=== PATIENT | male | born 1950 | race Caucasian/White ===

== ENCOUNTER 2016-08-29 16:14 | Emergency (ER) | payer OTHER, BC ==
[2016-08-29] MEDS ORDERED: FENTANYL CITRATE 50 MCG/ML SOL ONE (16:17)
[2016-08-29] MEDS ORDERED: KETAMINE HYDROCHLORIDE 50 MG/ML SOL ONE (16:21)
[2016-08-29] MEDS ORDERED: FENTANYL CITRATE 50 MCG/ML SOL IV ONE (16:25)
[2016-08-29] MEDS ORDERED: KETAMINE HYDROCHLORIDE 50 MG/ML SOL IV ONE ×2 (16:25→16:40)
[2016-08-29] MEDS ORDERED: ROCURONIUM BROMIDE 10 MG/ML SOL IV ONE (16:25)
[2016-08-29 16:36] LABS: HEMATOCRIT 50 % (39-53); MEAN CORPUSCULAR HGB CONC 33.6 gm/dl (32.0-36.0); MEAN CORPUSCULAR VOLUME 85 fL (80-100)
[2016-08-29 16:37] LABS: CALCIUM 8.7 mg/dl (8.5-10.1); POTASSIUM 3.9 mMol/L (3.5-5.1)
[2016-08-29 16:46] LABS: BASOPHILS % (MANUAL) 0 % (0-3); EOSINOPHILS % (MANUAL) 1 % (0-9); LYMPHOCYTES % (MANUAL) 31 % (10-50); NORMAL RBCS PRESENT
[2016-08-29 17:00] LABS: APPEARANCE,URINE Slightly Cloudy; BILIRUBIN,URINE NEGATIVE (NEGATIVE); COLOR,URINE Yellow; GLUCOSE, URINE (UA) 2+ (NEGATIVE); KETONES,URINE NEGATIVE (NEGATIVE); LEUKOCYTE ESTERASE ,URINE NEGATIVE (NEGATIVE); NITRATE,URINE NEGATIVE (NEGATIVE); OCCULT BLOOD,URINE 2+ (NEG-TRACE); PH,URINE 5.5; UROBILINOGEN,URINE 0.2 (0.2-1.0 EU)
[2016-08-29 17:05] LABS: WBC,URINE 0-3 (0-5AV/HPF)
[2016-08-29 17:34] VITALS: RESP 24
[2016-08-29 17:49] VITALS: BP 112/44; O2SAT 100
[2016-08-29 17:50] VITALS: PULSE 108
== END 2016-08-29 16:55 | disposition short-term general hospital (02) | DRG 556 ==
LOC: ED 16:14
DX: M25.512 Pain in left shoulder (principal); R51 Headache; R40.2412 Glasgow coma scale score 13-15, at arrival to emergency department; S01.81XA Laceration without foreign body of other part of head, initial encounter; V49.49XA Driver injured in collision with other motor vehicles in traffic accident, initial encounter
CPT/HCPCS: 80048; 81001; 85007; 85027; 85610; 85730; 96374; 96375; 99283; 99291; J3010

== ENCOUNTER 2018-04-10 10:03 | Emergency (ER) | payer MEDICARE, BC ==
[2018-04-10] MEDS ORDERED: HYDROMORPHONE HCL 2 MG/ML SOL IV ONE (10:21)
[2018-04-10] MEDS ORDERED: ONDANSETRON HCL 4 MG/2 ML SOL IV ONE (10:21)
[2018-04-10] MEDS ORDERED: SODIUM CHLORIDE 0.9% 1000 ML SOL IV SCH (10:45)
[2018-04-10 10:47] LABS: HEMATOCRIT 52 % (39-53); HEMOGLOBIN 16.7 gm/dl (13.5-17.7); MEAN CORPUSCULAR HEMOGLOBIN 29.3 pg (27.0-32.0); MEAN CORPUSCULAR VOLUME 92 fL (80-100)
[2018-04-10 10:56] LABS: INR 2.39 (0.86-1.12)
[2018-04-10 10:59] LABS: ALBUMIN 3.8 gm/dl (3.4-5.0); BILIRUBIN,TOTAL 0.8 mg/dl (0.2-1.0); CALCIUM 9.9 mg/dl (8.5-10.1); CARBON DIOXIDE 26.4 mEq/L (21-32); CREATININE 1.28 mg/dl (0.80-1.30); POTASSIUM 3.8 mMol/L (3.5-5.1); TOTAL PROTEIN 8.5 gm/dl (6.4-8.2)
[2018-04-10 11:03] LABS: BAND NEUTROPHILS % (MANUAL) 9 %; BASOPHILS % (MANUAL) 0 % (0-3); EOSINOPHILS % (MANUAL) 0 % (0-9); LYMPHOCYTES % (MANUAL) 7 % (10-50); MONOCYTES % (MANUAL) 11 % (0-12); NEUTROPHILS % (MANUAL) 73 % (37-80); NORMAL RBCS PRESENT
[2018-04-10] MEDS ORDERED: ONDANSETRON HCL 4 MG/2 ML SOL ONE (11:08)
[2018-04-10] MEDS ORDERED: HYDROMORPHONE 1 MG/ML SYRINGE ONE (11:08)
[2018-04-10 12:09] VITALS: RESP 18; TEMP 99.1
[2018-04-10] MEDS ORDERED: KETOROLAC TROMETHAMINE 30 MG/ML SOL IV ONE (12:16)
[2018-04-10] MEDS ORDERED: PIPERACILLIN/TAZOBACT 3.375 GM 3.375 GM in SODIUM CHLORIDE 0.9% 100 ML 100 ML IV SCH (12:30)
[2018-04-10] MEDS ORDERED: KETOROLAC TROMETHAMINE 30 MG/ML SOL ONE (12:32)
[2018-04-10] MEDS ORDERED: PIPERACILLIN/TAZOBACT 3.375 GM PDS IV ONE (12:32)
[2018-04-10 13:11] VITALS: BP 123/72; PULSE 92; O2SAT 92
== END 2018-04-10 13:20 | disposition short-term general hospital (02) | DRG 392 ==
LOC: ED 10:03
DX: R10.9 Unspecified abdominal pain (principal); K81.0 Acute cholecystitis
CPT/HCPCS: 36415; 71045; 74177; 80053; 82150; 85007; 85027; 85610; 85730; 96365; 96374; 96375; 99284; 99285; J1885; J2405; J2543; Q9967; J1170

== ENCOUNTER 2018-06-14 09:46 | Emergency (ER) | payer MEDICARE, BC ==
[2018-06-14 10:08] VITALS: RESP 20; TEMP 98.4
[2018-06-14] MEDS ORDERED: APAP/OXYCODONE 1 EACH TABLET PO ONE (11:08)
[2018-06-14] MEDS ORDERED: APAP/OXYCODONE 1 EACH TABLET ONE (11:11)
[2018-06-14 11:17] VITALS: BP 139/75; PULSE 66; O2SAT 96
== END 2018-06-14 11:23 | disposition home or self-care (01) | DRG 93 ==
LOC: ED 09:46
DX: G89.29 Other chronic pain (principal); Z79.01 Long term (current) use of anticoagulants; M54.9 Dorsalgia, unspecified; R68.84 Jaw pain; R51 Headache
CPT/HCPCS: 93005; 99283; A9270-GY

== ENCOUNTER 2018-11-10 08:43 | Day surgery (SDC) | payer MEDICARE, BC ==
[~2018-11-10 08:43] MED LIST: LIDOCAINE HCL 1% MPF 30 SOL ONE; PROPOFOL 500 MG/50 ML EMU IV ONE
[2018-11-10 09:34] VITALS: RESP 16
[2018-11-10] MEDS ORDERED: KETOROLAC TROMETHAMINE 30 MG/ML SOL ONE (10:31)
[2018-11-10 10:39] VITALS: PULSE 70
[2018-11-10 10:50] VITALS: TEMP 97.8; O2SAT 95
[2018-11-10 11:03] VITALS: BP 157/87
== END 2018-11-10 11:20 | disposition home or self-care (01) | DRG 951 ==
LOC: SURG 08:43
PROVIDERS: ATTEND Surgery
DX: Z12.11 Encounter for screening for malignant neoplasm of colon (principal); K57.32 Diverticulitis of large intestine without perforation or abscess without bleeding; Z86.010 Personal history of colon polyps; D12.0 Benign neoplasm of cecum
CPT/HCPCS: J1885; J2001; J2704